=== PATIENT | female | born 1995 | race Two or more races ===

== ENCOUNTER 2016-09-10 09:47 | Emergency (ER) | payer OTHER ==
[2016-09-10 09:52] VITALS: TEMP 98.1; BMI 21.2
[2016-09-10] MEDS ORDERED: ACETAMINOPHEN 325 MG TABLET (FP) PO ONE (11:48)
--- NOTE | 2016-09-10 11:48 | PDOC ---
History of Present Illness - General History Source: Patient Exam Limitations: No Limitations - History of Present Illness Initial Comments: 09/10/16 14:03 The patient is a 21 year old female, with a significant past medical history of ovarian cysts (on the right side), who presents to the emergency department with abdominal pain and nausea for the past week. She describes the abdominal pain as localized on the bilateral lower quadrants, mostly on the right lower quadrant. She describes the pain as sharp cramping sensation, ranging from mild to moderate in nature, without radiation or modifying factors. She notes that she usually gets this kind of pain every month or every other month but never to this severity. She denies vaginal bleeding or discharge. The patient denies chest pain, shortness of breath, headache and dizziness. Denies fever, chills, vomit, diarrhea and constipation. Denies dysuria, frequency, urgency and hematuria. LMP: 08/22/2016 Allergies: None Past surgical history: None reported Social history: No alcohol, tobacco or drug use reported PMD - Dr. 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 Penny <Joshua Fatima - Last Filed: 09/10/16 15:01> <Johnathan Dobbins - Last Filed: 09/10/16 20:09> - General Chief Complaint: Pain Stated Complaint: ABD PAIN, NAUSEA Time Seen by Provider: 09/10/16 11:20 Past History <Joshua Fatima - Last Filed: 09/10/16 15:01> - Past Medical History Other medical history: rt ovarian cyst - Immunization History Immunization Up to Date: Yes - Psycho/Social/Smoking Cessation Hx Anxiety: No Suicidal Ideation: No Smoking History: Never smoked Have you smoked in the past 12 months: No Number of Cigarettes Smoked Daily: 0 Cigars Per Day: 0 Information on smoking cessation initiated: No Hx Alcohol Use: No Drug/Substance Use Hx: No Substance Use Type: None <Johnathan Dobbins - Last Filed: 09/10/16 20:09> - Past Medical History Allergies/Adverse Reactions: Allergies Allergy/AdvReac Type Severity Reaction Status Date / Time No Known Allergies Allergy Verified 09/10/16 09:49 Home Medications: Ambulatory Orders NK [No Known Home Medication] 09/10/16 Review of Systems - Review of Systems Able to Perform ROS?: Yes Comments:: 09/10/16 14:04 CONSTITUTIONAL: No reported: Fever, Chills, Diaphoresis, Generalized Weakness, Malaise, Loss of Appetite HEENT: No reported: Rhinorrhea, Nasal Congestion, Throat Pain, Throat Swelling, Difficulty Swallowing, Mouth Swelling, Ear Pain, Eye Pain, Visual Changes CARDIOVASCULAR: No reported: Chest Pain, Syncope, Palpitations, Irregular Heart Rate, Lightheadedness, Peripheral Edema RESPIRATORY: No reported: Cough, Shortness of Breath, SOB with Exertion, Orthopnea, Wheezing , Stridor, Hemoptysis GASTROINTESTINAL: Reported: Abdominal pain and nausea. No reported: Abdominal Distension, Vomiting, Diarrhea, Constipation, Melena, Hematochezia GENITOURINARY: No reported: Dysuria, Frequency, Urgency, Hesitancy, Flank Pain, Genital Pain MUSCULOSKELETAL: No reported: Myalgia, Arthralgia, Joint Swelling, Back pain, Neck Pain SKIN: No reported: Rash, Itching, Pallor HEMEATOLOGIC/IMMUNOLOGIC: No reported: Easy Bleeding, Easy Bruising, Lymphadenopathy, Frequent infections ENDOCRINE: No reported: Unexplained Weight Gain, Unexplained Weight Loss, Heat Intolerance , Cold Intolerance NEUROLOGIC: No reported: Headache, Focal Weakness, Paresthesias, Vertigo, Lightheadedness, Unsteady Gait, Seizure, Mental Status Changes, Incontinence PSYCHIATRIC: No reported: Anxiety, Depression <Joshua Fatima - Last Filed: 09/10/16 15:01> *Physical Exam - Vital Signs Last Vital Signs Temp Pulse Resp BP Pulse Ox 98.1 F 96 H 18 115/70 100 09/10/16 09:49 09/10/16 09:49 09/10/16 09:49 09/10/16 09:49 09/10/16 09:49 - Physical Exam Comments: 09/10/16 14:04 GENERAL: The patient is awake, alert, and fully oriented, Nontoxic - in no acute distress. HEAD: Normocephalic, atraumatic. EYES: extraocular movements intact, sclera anicteric, conjunctiva clear. ENT: Normal voice, Moist mucous membranes. NECK: Normal range of motion, supple LUNGS: Breath sounds equal, clear to auscultation bilaterally. No wheezes, no rhonchi, no rales. HEART: Regular rate and rhythm, without murmur, rub or gallop. ABDOMEN: +Minimal left and right adnexal tenderness. Soft, normoactive bowel sounds. No guarding, no rebound.No CVA tenderness EXTREMITIES: Normal range of motion, no edema. No clubbing or cyanosis. No cords, erythema, or tenderness. NEUROLOGICAL: No facial assymetry, Normal speech, PSYCH: Normal mood, normal affect. SKIN: Warm, Dry, normal turgor <Joshua Fatima - Last Filed: 09/10/16 15:01> - Vital Signs Last Vital Signs Temp Pulse Resp BP Pulse Ox 98.1 F 96 H 18 115/70 100 09/10/16 09:49 09/10/16 09:49 09/10/16 09:49 09/10/16 09:49 09/10/16 09:49 <Johnathan Dobbins - Last Filed: 09/10/16 20:09> ED Treatment Course - ADDITIONAL ORDERS Additional order review: Laboratory Results 09/10/16 11:40 Urine Color Ltyellow Urine Appearance Clear Urine pH 6.0 D Ur Specific [place] 1.019 Urine Protein Negative Urine Glucose (UA) Negative Urine Ketones Negative Urine Blood Negative Urine Nitrite Negative Urine Bilirubin Negative Urine Urobilinogen Negative Ur Leukocyte Esterase Negative Urine HCG, Qual Negative - RADIOLOGY Radiograph Interpretation: 09/10/16 15:01 Transvaginal ultrasound Reviewed by: Dr. Surinder Cortes Impression: Complex right ovarian cyst likely a hemorrhagic cyst, dermoid lesion felt to be less likely based on the ultrasound appearance but not excluded, follow up ultrasound to monitor for resolution and improvement of these changes suggested after 3 menstrual cycles. - Medications Given in the ED: ED Medications Discontinued Medications Generic Name Dose Route Start Last Admin Trade Name Freq PRN Reason Stop Dose Admin Acetaminophen 650 mg 09/10/16 11:48 09/10/16 12:06 Tylenol - PO 09/10/16 11:49 650 mg ONCE ONE Administration <Joshua Fatima - Last Filed: 09/10/16 15:01> - RADIOLOGY Radiology Studies Ordered: Category Date Time Status TRANSVAGINAL ULTRASOUND US [US] Stat Ultrasound 09/10/16 11:44 Ordered <Jhonathan Dobbins - Last Filed: 09/10/16 20:09> Medical Decision Making - Medical Decision Making 09/10/16 11:45 21y F hx of ovarian cysts, presents with intermittent episodes of R adnexal pain that lasts for a few minutes, before resolving, asociated with mild nausea , pt states she frequently has this pain similarly almost monthly, but it seems more severe than previously. on exam pt well appearing in no distress vitals normal very inimal b/l adnexal tenderness suspect possible ovarian cysts will r/o , uti will give tylenol for pain A portion of this note was documented by scribe services under my direction. I have reviewed the details of the note, within reason, and agree with the documentation with the following case summary and management plan written by me 09/10/16 14:45 pt feeling imrpoved after tyenol US cw hemorrhagic cyst will dc te pt with obgyn fu return precautiosn were discussed I discussed the physical exam findings, ancillary test results and final diagnoses with the patient. I answered all of the patient's questions. The patient was satisfied with the care received and felt comfortable with the discharge plan and treatment plan. The patient will call their primary care physician within 24 hours to arrange follow-up and will return to the Emergency Department with any new, persistent or worsening symptoms. <Johnathan Dobbins - Last Filed: 09/10/16 20:09> *DC/Admit/Observation/Transfer - Attestations Scribe Attestion: 09/10/16 14:04 Documentation prepared by Joshua Fatima, acting as medical office manager for Johnathan Dobbins MD <Joshua Fatima - Last Filed: 09/10/16 15:01> - Discharge Dispostion Admit: No <Johnathan Dobbins - Last Filed: 09/10/16 20:09> Diagnosis at time of Disposition: Hemorrhagic cyst of ovary - Discharge Dispostion Disposition: HOME Condition at time of disposition: Improved - Referrals Referrals: Juana Ying MD [Primary Care Provider] - David Salinas MD [Staff Physician] - - Patient Instructions Printed Discharge Instructions: DI for Ovarian Cyst Additional Instructions: Return to the emergency department immediately with ANY new, persistent or worsening symptoms. Your ultrasound is suggestive of an complex cyst, please follow-up with Dr. Salinas for repeat ultrasound and reassessment. Take tylenol for your discomfort. You MUST call and follow up with your doctor tomorrow for further evaluation of your symptoms. Results were discussed with you. Please make sure your doctor reviews the results of your emergency evaluation. Print Language: MALTESE
[2016-09-10] MEDS ORDERED: ACETAMINOPHEN 325 MG TABLET (FP) ONE (11:59)
[2016-09-10 12:14] LABS: URINE APPEARANCE CLEAR; URINE BILIRUBIN NEGATIVE (NEGATIVE); URINE BLOOD NEGATIVE (NEGATIVE); URINE COLOR LTYELLOW; URINE GLUCOSE (UA) NEGATIVE (NEGATIVE); URINE KETONE NEGATIVE (NEGATIVE); URINE LEUK ESTERASE NEGATIVE (NEGATIVE); URINE NITRITE NEGATIVE (NEGATIVE); URINE PROTEIN NEGATIVE (NEGATIVE); URINE UROBILINOGEN NEGATIVE E.U./dl (0.2-1.0)
[2016-09-10 15:15] VITALS: BP 118/72; PULSE 88
== END 2016-09-10 15:15 | disposition home or self-care (01) ==
LOC: JER 09:47
DX: N83.209 Unspecified ovarian cyst, unspecified side (principal)
CPT/HCPCS: 76830-TC; 81003; 84703; 99283-25